=== PATIENT | male | born 1960 | race African-American/Black ===

== ENCOUNTER 2024-10-21 19:09 | Emergency (ER) | payer OTHER ==
[2024-10-21 19:16] VITALS: BP 126/90; PULSE 95; RESP 20; TEMP 98; BMI 29.6
== END 2024-10-21 20:56 | disposition left against medical advice (07) ==
LOC: JERFT 19:09 → JER 19:09 → JERFT 20:56
DX: Z53.21 Procedure and treatment not carried out due to patient leaving prior to being seen by health care provider (principal)
CPT/HCPCS: 99281-25